=== PATIENT | male | born 1955 | race Caucasian/White ===

== ENCOUNTER 2017-06-29 17:19 | Emergency (ER) | payer BC ==
[2017-06-29 20:01] VITALS: BP 149/87
--- NOTE | 2017-06-29 20:31 | EDM.PDOC ---
ED HPI GENERAL MEDICAL PROBLEM - General Chief Complaint: Respiratory Problem Stated Complaint: COUGH,CHEST TIGHTNESS Time Seen by Provider: 06/29/17 19:59 Source of Information: Reports: Patient, Family, RN Notes Reviewed History Limitations: Reports: No Limitations - History of Present Illness INITIAL COMMENTS - FREE TEXT/NARRATIVE: 61-year-old gentleman presents emergency department day complaint of cough and feeling short of breath he states he's been ill for a little over a week initially started as sinus difficulty then moved into his throat now it seems more in his chest she he doesn't produce much for sputum does have a history of asthma however he is not been using his inhaler did have fevers couple of days ago of around 100 - Related Data Allergies Allergy/AdvReac Type Severity Reaction Status Date / Time No Known Allergies Allergy Verified 06/29/16 04:23 Home Meds: Home Meds NK [No Known Home Meds] 06/10/14 [History] Past Medical History HEENT History: Reports: Impaired Vision Other HEENT History: wears glasses Respiratory History: Reports: Asthma Musculoskeletal History: Reports: Fracture - Infectious Disease History Infectious Disease History: Reports: Chicken Pox - Past Surgical History HEENT Surgical History: Reports: Tonsillectomy Respiratory Surgical History: Reports: None Musculoskeletal Surgical History: Reports: Other (See Below) Social & Family History - Tobacco Use Smoking Status *Q: Never Smoker Used Tobacco, but Quit: Yes Month Tobacco Last Used: Second Hand Smoke Exposure: No - Caffeine Use Caffeine Use: Reports: Coffee - Alcohol Use Days Per Week of Alcohol Use: 0 - Recreational Drug Use Recreational Drug Use: No ED ROS GENERAL - Review of Systems Review Of Systems: See Below Constitutional: Reports: Fever HEENT: Reports: No Symptoms Respiratory: Reports: Shortness of Breath, Cough. Denies: Wheezing, Sputum Cardiovascular: Reports: No Symptoms GI/Abdominal: Reports: No Symptoms : Reports: No Symptoms ED EXAM, GENERAL - Physical Exam Exam: See Below Exam Limited By: No Limitations General Appearance: Alert, WD/WN, No Apparent Distress Neck: Normal Inspection, Supple, Non-Tender, Full Range of Motion Respiratory/Chest: No Respiratory Distress, Lungs Clear, Normal Breath Sounds, No Accessory Muscle Use Cardiovascular: Regular Rate, Rhythm, No Murmur Course - Vital Signs Last Recorded V/S: Last Vital Signs Temp 97.2 F 06/29/17 20:00 Pulse 78 06/29/17 20:00 Resp 16 06/29/17 20:00 BP 149/87 H 06/29/17 20:00 Pulse Ox 96 06/29/17 20:00 Departure - Departure Time of Disposition: 20:30 Disposition: Home, Self-Care 01 Condition: Good Clinical Impression: Bronchitis - Discharge Information Referrals: Terell Pathak MD [Primary Care Provider] - Additional Instructions: Take full course of antibiotics, Please followup with your primary care provider in 3-5 days if not better, please call return to the emergency department with worsening of symptoms. - Assessment/Plan Plan: Assessment Acuity = acute Site and laterality = bronchitis Etiology = probable bacterial cause Manifestations = cough, dyspnea Location of injury = Home Lab values = none Plan Discussed options such as further evaluation with blood work and chest x-ray he declined elected to be treated empirically with a Z-Kike follow-up with primary care in 3-5 days if no improvement Patient was in agreement with the plan all questions were answered, they were instructed to return to the emergency department or call for worsening symptoms. This note was dictated using [employer] voice recognition software please call with any questions.
== END 2017-06-29 20:35 | disposition home or self-care (01) ==
LOC: JP.ED 17:19
DX: J40 Bronchitis, not specified as acute or chronic (principal); Z87.891 Personal history of nicotine dependence; Z98.890 Other specified postprocedural states
CPT/HCPCS: 99283

== ENCOUNTER 2024-07-09 19:05 | Emergency (ER) | payer MEDICARE ==
[2024-07-09 19:18] VITALS: BP 139/85; PULSE 72
[2024-07-09] MEDS: Ketorolac 30 MG/ML SDV IM ONE (19:58)
[2024-07-09] MEDS: Diphtheria,Pertussis(Acell),Tetanus Vaccine 0.5 ML Syringe IM ONE (19:59)
== END 2024-07-09 20:46 | disposition home or self-care (01) ==
LOC: JP.ED 19:05
DX: S61.301A Unspecified open wound of left index finger with damage to nail, initial encounter (principal); S61.303A Unspecified open wound of left middle finger with damage to nail, initial encounter; J45.909 Unspecified asthma, uncomplicated; Z23 Encounter for immunization; Z79.899 Other long term (current) drug therapy; W31.2XXA Contact with powered woodworking and forming machines, initial encounter
CPT/HCPCS: 73130-LT; 90471; 90715; 96372; 99283; 99283-25; J1885

== ENCOUNTER 2025-03-18 07:03 | Day surgery (SDC) | payer MEDICARE ==
[~2025-03-18 07:03] MED LIST: Midazolam 1 MG/ML 2 ML SDV ONE; Propofol 200 MG/20 ML SDV ONE; fentaNYL 100 MCG/2 ML SDV ONE
[2025-03-18] MEDS: Lactated Ringers 1,000 ML IV SCH (07:46)
[2025-03-18 10:07] VITALS: BP 145/81; PULSE 55
== END 2025-03-18 10:05 | disposition home or self-care (01) ==
LOC: JP.SDS 07:03
PROVIDERS: ATTEND Surgery
DX: Z12.11 Encounter for screening for malignant neoplasm of colon (principal)
CPT/HCPCS: G0121; J2250; J2704; J3010; J7120; 00812-QZ